=== PATIENT | male | born 1975 | race Caucasian/White ===

== ENCOUNTER 2017-01-25 19:48 | Inpatient (IN) | payer BC ==
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
--- NOTE | ~2017-01-25 | OP ---
Record Of Operation [facility] [address] [place]. [address] NAME: LAUREN SMITH : 73 STATUS : ADM IN PAT#: [id number] AGE: 41 ADM/REG DATE : 01/25/17 MR#: [id number] REPORT SERV DATE: 01/29/17 DICTATED BY: ALEXEI ALANIZ DATE: 01/29/17 REPORT STATUS : Draft TRANSCRIBED BY: MODL DATE: 01/29/17 DATE OF PROCEDURE: 01/29/2017 PREOPERATIVE DIAGNOSIS: Right small finger infection from dog bite. POSTOPERATIVE DIAGNOSIS: Right small finger infection from dog bite. OPERATION PERFORMED: 1. Right small finger irrigation and excisional debridement, the skin subcutaneous tissue, and open packing. 2. Right small finger irrigation, tenosynovectomy of the flexor sheath. SURGEON: Alexei Alaniz M.D. FURNITURE MOVER HELPER: Caroline Gamboa. ANESTHESIA: General. TOURNIQUET TIME: 19 minutes. INDICATION FOR OPERATION: Please refer to the consult note. OPERATIVE FINDINGS: There was purulent tenosynovitis in the area of the A1 jairo of the flexor sheath. Also the FDS tendon appeared to be redundant from approximately in the carpal canal. This did not make a lot of sense. It did not appear to be ruptured. Tenosynovectomy was performed at the level of the A1 jairo. There was fibrinous tissue of the soft tissue outside the flexor sheath in the area of the dog bite at the PIP flexion crease. This was debrided, was cultured. Irrigation of the flexor sheath was carried out with a 3.5-Austrian pediatric feeding tube. Ultimately open packing was carried out with Bactroban and NuGauze. DESCRIPTION OF PROCEDURE: The patient was taken to the operating room and placed on the operating table in supine position. Successful general anesthesia was given by the anesthesiologist. The tourniquet was applied. The right arm was secured with Steri-Drape. The right arm was then prepped with Betadine and draped in sterile routine fashion. The arm was elevated for five minutes. Tourniquet was inflated to 250 mmHg. Under 3.5 loupe magnification, the transverse dog bite incision was then incorporated into a Z-type of incision centered around the PIP flexion crease. The outer layer of superficial epidermis was blistered up. It was removed. The flaps were carefully elevated. There was purulent fibrinous tissue that was removed with a synovectomy rongeur. This was cultured as well. There appeared to be some rent in the flexor sheath from the initial penetration but the FDS and FDP tendons appeared to be intact. This was irrigated, then an incision was made at the level of the A1 jairo. Dissection was carried down through the skin and subcutaneous tissue. The sheath at this level was seen to be bulged up with purulent appearing tenosynovium. The A1 jairo was opened. The tenosynovium was then excised with the tenosynovectomy. It was noted that the FDS tendon appeared to be redundant proximally from Record Of Operation [place] [id number] [facility] [place]. [address] NAME: LAUREN SMITH : 73 STATUS : ADM IN PAT#: [id number] AGE: 41 ADM/REG DATE : 01/25/17 MR#: [id number] REPORT SERV DATE: 01/29/17 DICTATED BY: ALEXEI ALANIZ DATE: 01/29/17 REPORT STATUS : Draft TRANSCRIBED BY: AFRICA DATE: 01/29/17 the area of the carpal canal. The purulence did not appear to track further than the area of the A1 jairo. I had stripped all the tenosynovium from the tendons at this level. The A2 jairo was completely intact. I then irrigated the flexor sheath with the 3.5 mm Austrian pediatric feeding tube with about 400 mL of normal saline. The 0.5 inch NuGauze was then coated in Bactroban ointment and this was packed in both of the wounds. The tourniquet was let down prior to this packing. The patient was then placed in bulky compressive dressing and ulnar gutter splint and was taken to the recovery room in satisfactory condition. He tolerated the procedure well. DISPOSITION: He will plan to return to the operating room tomorrow for repeat I and D, possible closure, possible open packing. THIEN/AFRICA Alexei Alaniz M.D. / [id number] CC: Riley Ling, DO
--- NOTE | ~2017-01-25 | DS ---
Discharge Summary [facility] [address] [place]. [address] NAME: LAUREN SMITH : 73 STATUS : DIS IN PAT#: [id number] AGE: 41 ADM/REG DATE : 01/25/17 MR#: [id number] REPORT SERV DATE: 02/01/17 DICTATED BY: PRATIMA HERZOG DATE: 01/31/17 REPORT STATUS : Draft TRANSCRIBED BY: MODL DATE: 01/31/17 ADMISSION DATE: 01/25/2017 DISCHARGE DATE: 01/31/2017 HOSPITAL COURSE: This 41-year-old, male, has a [address] terrier dog who bit him on 01/23/2017, the right little finger is the worst bite with progressive swelling, pain and redness going up to his right arm, 103.1 temp on 01/25/2017, leukocytosis, A1c 15.9, placed on vancomycin and Zosyn. Had a flexor tendon sheath involvement showed Enterobacter resistant to Cipro along with Staph aureus MRSA, was actually reidentified as MSSA. The patient will receive IV Zosyn via PICC line through 02/09/2017, had two incision and drainages by Dr. Erik Alaniz, the last was yesterday on 01/30/2017. Right small middle finger I and D, irrigation closure over drain. Initial was a right small finger irrigation tenosynovectomy of the flexor sheath with closure the following day. The patient has had a variable labile/brittle diabetes requiring significant amount of insulin that became relatively hypoglycemic as a result of diabetic diet control and lifestyle modification. The patient did have acute blood loss anemia. His hemoglobin has been stable 10.2. DISCHARGE MEDS: 1. Cymbalta 20 mg p.o. daily. 2. Flomax 0.4 mg p.o. daily. 3. Levbid home dose. 4. Levemir or Lantus 20 units subcu q.h.s. 5. Medihoney apply to wound bed. 6. NovoLog 8 units subcu t.i.d. 7. Zosyn through 02/09/2017 via PICC line, then D/C PIC with Home Health. 8. Accu-Cheks. FOLLOWUP: The patient will follow up with Dr. Ramirez who used to follow, PCP in two weeks, and Dr. Alaniz with Orthopedics in two to six weeks. PROCEDURES: See above. CONSULTS: Infectious Disease, Orthopedic Hand. Follow up with Dr. Jewell as prescribed. DISCHARGE DIAGNOSES: Sepsis due to dog bite wound most notably in the right middle as well as right small finger status post two I and D's on IV Zosyn. Surgical culture is still pending with ID is okay with discharge. The patient has had clinical improvement on current therapy. All questions were answered. It took well over 30 minutes to do. DICTATED BY: Pratima Herzog DO WST/AFRICA Discharge Summary [place] [id number] [facility] [place] [address] NAME: LAUREN SMITH : 73 STATUS : DIS IN PAT#: [id number] AGE: 41 ADM/REG DATE : 01/25/17 MR#: [id number] REPORT SERV DATE: 02/01/17 DICTATED BY: PRATIMA HERZOG DATE: 01/31/17 REPORT STATUS : Draft TRANSCRIBED BY: MODKahlil DATE: 01/31/17 Pratima Herzog DO / [id number] CC: Pratima Herzog DO
--- NOTE | ~2017-01-25 | OP ---
Record Of Operation [facility] [address] [place]. [address] NAME: LAUREN SMITH : 73 STATUS : ADM IN PAT#: [id number] AGE: 41 ADM/REG DATE : 01/25/17 MR#: [id number] REPORT SERV DATE: 01/30/17 DICTATED BY: ALEXEI ALANIZ DATE: 01/30/17 REPORT STATUS : Draft TRANSCRIBED BY: MODL DATE: 01/30/17 DATE OF PROCEDURE: 01/30/2017 PREOPERATIVE DIAGNOSIS: Right small finger infection, status post initial irrigation and debridement, open packing. POSTOPERATIVE DIAGNOSIS: Right small finger infection, status post initial irrigation and debridement, open packing. OPERATION PERFORMED: Repeat irrigation and debridement of right small finger and irrigation of flexor sheath with closure over drain. SURGEON: Alexei Alaniz M.D. NURSING OFFICER: Ad Osorio. ANESTHESIA: General. TOURNIQUET TIME: 13 minutes. DRAINS: Vessel loop x1. INDICATION FOR OPERATION: Please refer to the previous op note and the consult note. OPERATIVE FINDINGS: There was no purulence present today. The skin over the proximal middle phalanx was friable, but viable and the flaps were able to be closed. Irrigation of the flexor sheath was carried out as well. A vessel loop drain was placed. DESCRIPTION OF PROCEDURE: The patient was taken to the operating room and placed on the operating table in supine position. Successful general anesthesia was given by the anesthesiologist. The packing was pulled out, the wound was inspected. Tourniquet applied to the right arm, secured with Steri-Drape. The right arm was then prepped with Betadine and draped in sterile routine fashion. The arm was elevated for five minutes. Tourniquet was inflated to 250 mmHg. Under 3.5 loupe magnification, I inspected the wounds, I then debrided the skin edges of the finger over the middle and proximal phalanx. Some of the subcutaneous tissue was debrided with a synovectomy rongeur. There was no purulence around the flexor sheath. I also inspected at the A1 jairo area, there was no purulence present there, some small amount of granulation tissue was removed with synovectomy rongeur. The wound was then copiously irrigated with about 500 mL of normal saline solution through bulb syringe, as well as irrigation with the Angiocath and syringe. The vessel loop drain was then placed in the flexor sheath all the way down proximal to the A1 jairo and brought out the distal wound. The flaps were then closed distally with 4-0 Prolene. The A1 jairo wound was closed with 3-0 Prolene. Tourniquet was let down. Hemostasis was good. The patient was placed in bulky compression dressing ulnar gutter splint and the vessel loop drain was brought out at the end and taped. Record Of Operation [address] [place]. [address] NAME: LAUREN SMITH : 73 STATUS : ADM IN PAT#: [id number] AGE: 41 ADM/REG DATE : 01/25/17 MR#: [id number] REPORT SERV DATE: 01/30/17 DICTATED BY: ALEXEI ALANIZ DATE: 01/30/17 REPORT STATUS : Draft TRANSCRIBED BY: AFRICA DATE: 01/30/17 DISPOSITION: We will plan to pull the drain tomorrow. He will be discharged on home antibiotics per Infectious Disease as cultures mature. He is to follow up in the office on 02/09/2017. THIEN/AFRICA Alexei Alaniz M.D. / [id number] CC: Riley Ling DO
--- NOTE | ~2017-01-25 | CN ---
Consultation Report [facility] [address] [place]. [address] NAME: LAUREN SMITH : 73 STATUS : ADM IN [facility]#: [id number] AGE: 41 ADM/REG DATE : 01/25/17 MR#: [id number] REPORT SERV DATE: 01/26/17 DICTATED BY: ALEXEI ALANIZ DATE: 01/26/17 REPORT STATUS : Draft TRANSCRIBED BY: AFRICA DATE: 01/26/17 CONSULTATION NOTE DATE OF CONSULTATION: CHIEF COMPLAINT: Dog bite, both hands. 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 The dog had full shots, and when the dog ran out of the leash, the dog bit him on multiple locations on both hands. Thursday, the right small finger started to swell, and the patient noticed streaking up the arm. The patient is an insulin-dependent diabetic. He came to the emergency room yesterday with blood sugars in the 400s, elevated temperature, and elevated white blood cell count. He was admitted last night to the hospitalist, begun on Zosyn, overnight, the right arm lymphangitis has already begin to improve. PAST MEDICAL HISTORY: ALLERGIES: NONE KNOWN. PAST SURGICAL HISTORY: Left great toe amputation. MEDICAL HISTORY: Insulin-dependent diabetes since 2008. SOCIAL AND FAMILY HISTORY: He is single. Lives in [place]. He does not smoke, he does not drink. FAMILY HISTORY: Unremarkable. REVIEW OF SYSTEMS: Negative except for history of diabetes. PHYSICAL EXAMINATION: Shows a pleasant, cooperative white male. He has multiple tattoos bilaterally. He has multiple scabs on both hands and the fingers. Full range of motion of the left hand. There was no pus around the scabs, left hand. Right hand small finger has redness and swelling with a 2 cm flexion lag. There is a scab right over the PIP flexion crease and multiple scabs dorsally. None have pus. There is no tenderness in the flexor sheath. There is cellulitis on the ulnar side of the hand with redness, although, it is fading from initial presentation per the patient. His lymphangitis has improved in the upper arm, but still somewhat tender. IMPRESSION: Dog bites to bilateral hands, with cellulitis, and lymphangitis of the right small finger. Consultation Report [facility] [address] [place]. [address] NAME: LAUREN SMITH : 73 STATUS : ADM IN PAT#: [id number] AGE: 41 ADM/REG DATE : 01/25/17 MR#: [id number] REPORT SERV DATE: 01/26/17 DICTATED BY: ALEXEI ALANIZ DATE: 01/26/17 REPORT STATUS : Draft TRANSCRIBED BY: AFRICA DATE: 01/26/17 PLAN: At this point, I do not see any evidence of flexor sheath or joint infection, or abscess that will require surgery. We will observe closely for any changes. Continue antibiotics per Infectious Disease. BS/AFRICA Alexei Alaniz M.D. / [id number] CC: Tawanda Torres M.D.
[2017-01-25 18:56] LABS: BASOPHILS 0.2 %; BASOPHILS ABSOLUTE 0.03 10/3/uL (0.0-0.16); EOSINOPHILS 0.7 %; EOSINOPHILS ABSOLUTE 0.09 10/3/uL (0.0-0.53); IMMATURE GRANULOCYTES 0.2 %; IMMATURE GRANULOCYTES ABSOLUTE 0.02 10/3/uL (0.0-0.11); LYMPHOCYTES 17.5 %; LYMPHOCYTES ABSOLUTE 2.17 10/3/uL (0.67-4.30); MEAN CORPUS HGB CONC 34.4 g/dL (32.0-36.0); MEAN CORPUSCULAR HEMOGLOB 27.1 pg (26.0-34.0); MEAN CORPUSCULAR VOLUME 78.9 fL (80-100); MEAN PLATELET VOLUME 9.7 fL (9.2-13.0); MONOCYTES 6.7 %; MONOCYTES ABSOLUTE 0.83 10/3/uL (0.21-1.20); NEUTROPHILS 74.7 %; NEUTROPHILS ABSOLUTE 9.25 10/3/uL (2.02-8.40); PLATELET COUNT 208 10/3/uL (150-400); RBC DISTRIBUTION WIDTH 12.4 % (12.0-16.0)
[2017-01-25 18:57] LABS: ER CBC TAT 0 Hrs 07 Mins; HEMOGLOBIN 11.7 g/dL (13.6-17.8); MANUAL DIFF NO %; RED CELL COUNT 4.31 10/6/uL (4.7-6.1); WHITE BLOOD CELLS 12.4 10/3/uL (4.5-10.5)
[2017-01-25 19:09] LABS: ALKALINE PHOSPHATASE 117 U/L (45-117); CALCIUM, SERUM 8.7 MG/DL (8.5-10.4); CHLORIDE, SERUM 99 MMOL/L (96-112); CO2 (CARBON DIOXIDE) 29 MMOL/L (24-34); CREATININE 1.07 MG/DL (0.70-1.30); GFR AFRICAN AMERICAN 99 ML/MIN (>=60); GFR NON AFRICAN AMERICAN 85 ML/MIN (>=60); GLOBULIN 3.3 G/DL (2.5-4.1); POTASSIUM, SERUM 4.6 MMOL/L (3.5-5.3); SGOT(AST) 16 U/L (5-40); SGPT(ALT) 28 U/L (5-65); SODIUM, SERUM 133 MMOL/L (135-148); TOTAL BILIRUBIN 1.6 MG/DL (0-1.2); TOTAL PROTEIN 6.7 G/DL (6.0-8.5)
[2017-01-25 19:10] LABS: ALBUMIN 3.4 G/DL (3.5-5.0); BUN (BLOOD UREA NITROGEN) 14 MG/DL (6-23); GLUCOSE, SERUM 424 MG/DL (60-99)
[~2017-01-25 19:48] MED LIST: LANTUS SC; LEVSINTAB PO; NEUR800 PO; NORCO1 TAB PO; NOVOLOG SC
[2017-01-25] MEDS ORDERED: NEUR800 PO (19:56)
[2017-01-25] MEDS ORDERED: LANTUSCART SC (19:57)
[2017-01-25] MEDS ORDERED: NOVOPEN SC (19:57)
[2017-01-25] MEDS ORDERED: LEVBID PO (19:58)
[2017-01-25] MEDS ORDERED: NORCO1 TAB PO (19:58)
[2017-01-25] MEDS ORDERED: IMOD PO (19:59)
[2017-01-25] MEDS ORDERED: CYMBALTA20 PO (20:00)
[2017-01-25] MEDS ORDERED: LIDODERM TOP (20:01)
[2017-01-25] MEDS ORDERED: BC HEADACHE PO (20:02)
[2017-01-26 05:24] LABS: BASOPHILS 0.3 %; BASOPHILS ABSOLUTE 0.04 10/3/uL (0.0-0.16); EOSINOPHILS 1.5 %; EOSINOPHILS ABSOLUTE 0.19 10/3/uL (0.0-0.53); HEMATOCRIT 32.2 % (40.0-51.0); HEMOGLOBIN 10.8 g/dL (13.6-17.8); IMMATURE GRANULOCYTES 0.2 %; IMMATURE GRANULOCYTES ABSOLUTE 0.03 10/3/uL (0.0-0.11); LYMPHOCYTES ABSOLUTE 2.22 10/3/uL (0.67-4.30); MEAN CORPUS HGB CONC 33.5 g/dL (32.0-36.0); MEAN CORPUSCULAR HEMOGLOB 26.7 pg (26.0-34.0); MEAN CORPUSCULAR VOLUME 79.7 fL (80-100); MEAN PLATELET VOLUME 9.8 fL (9.2-13.0); MONOCYTES 9.1 %; MONOCYTES ABSOLUTE 1.12 10/3/uL (0.21-1.20); NEUTROPHILS 70.9 %; NEUTROPHILS ABSOLUTE 8.71 10/3/uL (2.02-8.40); PLATELET COUNT 199 10/3/uL (150-400); RBC DISTRIBUTION WIDTH 12.6 % (12.0-16.0); RED CELL COUNT 4.04 10/6/uL (4.7-6.1); WHITE BLOOD CELLS 12.3 10/3/uL (4.5-10.5)
[2017-01-26 05:25] LABS: MANUAL DIFF NO %
[2017-01-26 05:34] LABS: INTERNATIONAL NORMAL RATI 1.2 UNITS (-); PARTIAL THROMBO TIME 46.7 SEC (22.5-37.2); PROTIME (NOT ORD) 14.7 SEC (12.0-14.5)
[2017-01-26 05:58] LABS: A/G RATIO 0.9 (0.7-1.9); ALBUMIN 2.8 G/DL (3.5-5.0); BUN (BLOOD UREA NITROGEN) 15 MG/DL (6-23); CALCIUM, SERUM 8.6 MG/DL (8.5-10.4); CHLORIDE, SERUM 103 MMOL/L (96-112); CO2 (CARBON DIOXIDE) 29 MMOL/L (24-34); CREATININE 0.86 MG/DL (0.70-1.30); GFR AFRICAN AMERICAN 124 ML/MIN (>=60); GFR NON AFRICAN AMERICAN 107 ML/MIN (>=60); GLOBULIN 3.1 G/DL (2.5-4.1); SGOT(AST) 36 U/L (5-40); SGPT(ALT) 29 U/L (5-65); SODIUM, SERUM 138 MMOL/L (135-148); TOTAL PROTEIN 5.9 G/DL (6.0-8.5)
[2017-01-26 06:01] LABS: ALKALINE PHOSPHATASE 101 U/L (45-117); GLUCOSE, SERUM 105 MG/DL (60-99); POTASSIUM, SERUM 3.6 MMOL/L (3.5-5.3); TOTAL BILIRUBIN 1.1 MG/DL (0-1.2)
[2017-01-27 01:52] LABS: MICROALBUMIN, RANDOM URINE 16.1 MG/DL
[2017-01-27 04:57] LABS: BASOPHILS 0.2 %; BASOPHILS ABSOLUTE 0.02 10/3/uL (0.0-0.16); EOSINOPHILS 2.6 %; EOSINOPHILS ABSOLUTE 0.28 10/3/uL (0.0-0.53); HEMOGLOBIN 10.9 g/dL (13.6-17.8); IMMATURE GRANULOCYTES 0.2 %; IMMATURE GRANULOCYTES ABSOLUTE 0.02 10/3/uL (0.0-0.11); LYMPHOCYTES 17.6 %; LYMPHOCYTES ABSOLUTE 1.91 10/3/uL (0.67-4.30); MEAN CORPUSCULAR HEMOGLOB 26.5 pg (26.0-34.0); MEAN CORPUSCULAR VOLUME 80.3 fL (80-100); MEAN PLATELET VOLUME 9.7 fL (9.2-13.0); MONOCYTES 6.5 %; MONOCYTES ABSOLUTE 0.71 10/3/uL (0.21-1.20); NEUTROPHILS 72.9 %; NEUTROPHILS ABSOLUTE 7.93 10/3/uL (2.02-8.40); PLATELET COUNT 205 10/3/uL (150-400); RBC DISTRIBUTION WIDTH 12.5 % (12.0-16.0); RED CELL COUNT 4.11 10/6/uL (4.7-6.1); WHITE BLOOD CELLS 10.9 10/3/uL (4.5-10.5)
[2017-01-27 04:58] LABS: MANUAL DIFF NO %
[2017-01-27 05:10] LABS: A/G RATIO 0.8 (0.7-1.9); ALBUMIN 2.4 G/DL (3.5-5.0); ALKALINE PHOSPHATASE 95 U/L (45-117); BUN (BLOOD UREA NITROGEN) 13 MG/DL (6-23); CALCIUM, SERUM 7.9 MG/DL (8.5-10.4); CHLORIDE, SERUM 104 MMOL/L (96-112); CHOL/HDL RATIO(NOT ORDER) 2.2 (0-5); CHOLESTEROL 108 MG/DL (< 200); CO2 (CARBON DIOXIDE) 30 MMOL/L (24-34); CREATININE 0.67 MG/DL (0.70-1.30); GFR AFRICAN AMERICAN 137 ML/MIN (>=60); GFR NON AFRICAN AMERICAN 119 ML/MIN (>=60); GLOBULIN 3.1 G/DL (2.5-4.1); HDL CHOLESTEROL 50 MG/DL (> 39); LDL CHOLESTEROL 37 MG/DL (< 130); NON-HDL CHOLESTEROL 58 MG/DL (< 160); POTASSIUM, SERUM 4.1 MMOL/L (3.5-5.3); SGOT(AST) 28 U/L (5-40); SGPT(ALT) 31 U/L (5-65); SODIUM, SERUM 138 MMOL/L (135-148); TOTAL BILIRUBIN 0.9 MG/DL (0-1.2); TOTAL PROTEIN 5.5 G/DL (6.0-8.5); TRIGLYCERIDE 105 MG/DL (< 150)
[2017-01-27 05:12] LABS: GLUCOSE, SERUM 156 MG/DL (60-99)
[2017-01-27 05:48] LABS: PROCALCITONIN 0.12 ng/mL (<0.5)
[2017-01-29 06:43] LABS: BASOPHILS 0.4 %; BASOPHILS ABSOLUTE 0.03 10/3/uL (0.0-0.16); EOSINOPHILS 3.5 %; HEMATOCRIT 31.3 % (40.0-51.0); HEMOGLOBIN 10.3 g/dL (13.6-17.8); IMMATURE GRANULOCYTES 0.2 %; IMMATURE GRANULOCYTES ABSOLUTE 0.02 10/3/uL (0.0-0.11); LYMPHOCYTES 25.5 %; LYMPHOCYTES ABSOLUTE 2.17 10/3/uL (0.67-4.30); MEAN CORPUS HGB CONC 32.9 g/dL (32.0-36.0); MEAN CORPUSCULAR HEMOGLOB 26.4 pg (26.0-34.0); MEAN CORPUSCULAR VOLUME 80.3 fL (80-100); MONOCYTES 10.8 %; MONOCYTES ABSOLUTE 0.92 10/3/uL (0.21-1.20); NEUTROPHILS 59.6 %; NEUTROPHILS ABSOLUTE 5.08 10/3/uL (2.02-8.40); PLATELET COUNT 275 10/3/uL (150-400); RBC DISTRIBUTION WIDTH 12.5 % (12.0-16.0); WHITE BLOOD CELLS 8.5 10/3/uL (4.5-10.5)
[2017-01-29 06:44] LABS: MANUAL DIFF NO %
[2017-01-29 06:51] LABS: CHLORIDE, SERUM 103 MMOL/L (96-112); CO2 (CARBON DIOXIDE) 29 MMOL/L (24-34); CREATININE 0.85 MG/DL (0.70-1.30); GFR AFRICAN AMERICAN 125 ML/MIN (>=60); GFR NON AFRICAN AMERICAN 107 ML/MIN (>=60); PHOSPHORUS, SERUM 2.4 MG/DL (2.5-4.5); POTASSIUM, SERUM 4.4 MMOL/L (3.5-5.3); SODIUM, SERUM 138 MMOL/L (135-148)
[2017-01-29 06:53] LABS: BUN (BLOOD UREA NITROGEN) 6 MG/DL (6-23); CALCIUM, SERUM 8.9 MG/DL (8.5-10.4); GLUCOSE, SERUM 297 MG/DL (60-99)
[2017-01-30 05:01] LABS: BASOPHILS 0.6 %; BASOPHILS ABSOLUTE 0.04 10/3/uL (0.0-0.16); EOSINOPHILS 5.4 %; EOSINOPHILS ABSOLUTE 0.37 10/3/uL (0.0-0.53); HEMATOCRIT 32.6 % (40.0-51.0); HEMOGLOBIN 10.6 g/dL (13.6-17.8); IMMATURE GRANULOCYTES 0.3 %; IMMATURE GRANULOCYTES ABSOLUTE 0.02 10/3/uL (0.0-0.11); LYMPHOCYTES 32.4 %; LYMPHOCYTES ABSOLUTE 2.21 10/3/uL (0.67-4.30); MANUAL DIFF NO %; MEAN CORPUS HGB CONC 32.5 g/dL (32.0-36.0); MEAN CORPUSCULAR HEMOGLOB 26.4 pg (26.0-34.0); MEAN CORPUSCULAR VOLUME 81.3 fL (80-100); MEAN PLATELET VOLUME 8.3 fL (9.2-13.0); MONOCYTES 6.6 %; MONOCYTES ABSOLUTE 0.45 10/3/uL (0.21-1.20); NEUTROPHILS 54.7 %; NEUTROPHILS ABSOLUTE 3.74 10/3/uL (2.02-8.40); PLATELET COUNT 279 10/3/uL (150-400); RBC DISTRIBUTION WIDTH 12.6 % (12.0-16.0); RED CELL COUNT 4.01 10/6/uL (4.7-6.1); WHITE BLOOD CELLS 6.8 10/3/uL (4.5-10.5)
[2017-01-30 05:11] LABS: PHOSPHORUS, SERUM 3.3 MG/DL (2.5-4.5)
[2017-01-31 06:02] LABS: BASOPHILS 0.7 %; BASOPHILS ABSOLUTE 0.05 10/3/uL (0.0-0.16); EOSINOPHILS 4.8 %; EOSINOPHILS ABSOLUTE 0.33 10/3/uL (0.0-0.53); HEMATOCRIT 31.6 % (40.0-51.0); HEMOGLOBIN 10.2 g/dL (13.6-17.8); IMMATURE GRANULOCYTES 0.3 %; IMMATURE GRANULOCYTES ABSOLUTE 0.02 10/3/uL (0.0-0.11); LYMPHOCYTES 26.7 %; LYMPHOCYTES ABSOLUTE 1.82 10/3/uL (0.67-4.30); MEAN CORPUS HGB CONC 32.3 g/dL (32.0-36.0); MEAN CORPUSCULAR HEMOGLOB 26.3 pg (26.0-34.0); MEAN CORPUSCULAR VOLUME 81.4 fL (80-100); MEAN PLATELET VOLUME 8.2 fL (9.2-13.0); MONOCYTES 12.5 %; MONOCYTES ABSOLUTE 0.85 10/3/uL (0.21-1.20); NEUTROPHILS ABSOLUTE 3.75 10/3/uL (2.02-8.40); PLATELET COUNT 293 10/3/uL (150-400); RBC DISTRIBUTION WIDTH 12.9 % (12.0-16.0); RED CELL COUNT 3.88 10/6/uL (4.7-6.1); WHITE BLOOD CELLS 6.8 10/3/uL (4.5-10.5)
[2017-01-31 06:03] LABS: MANUAL DIFF NO %
[2017-01-31 06:12] LABS: PHOSPHORUS, SERUM 3.4 MG/DL (2.5-4.5)
[2017-01-31] MEDS ORDERED: NORCO1 TA2 PO (11:03)
[2017-01-31] MEDS ORDERED: LANTUS SC (11:04)
[2017-01-31] MEDS ORDERED: ZOSYN375 IV (11:04)
[2017-01-31] MEDS ORDERED: FLOMAX4 PO (11:05)
[2017-01-31] MEDS ORDERED: NOVOLOG SC (11:05)
== END 2017-01-31 17:21 | disposition home or self-care (01) | DRG 854 ==
LOC: ER 19:48 → 4SO 20:38
PROVIDERS: Emergency Medicine; Internal Medicine; Orthopaedic Surgery Hand Surgery
PROC: 0LB70ZZ Excision of Right Hand Tendon, Open Approach (ICD-10-PCS; principal; 2017-01-29 15:15)
PROC: 0JBJ0ZZ Excision of Right Hand Subcutaneous Tissue and Fascia, Open Approach (ICD-10-PCS; 2017-01-30)
DX: A41.01 Sepsis due to Methicillin susceptible Staphylococcus aureus (principal); D62 Acute posthemorrhagic anemia; E11.649 Type 2 diabetes mellitus with hypoglycemia without coma; E11.65 Type 2 diabetes mellitus with hyperglycemia; L03.113 Cellulitis of right upper limb; T24.031A Burn of unspecified degree of right lower leg, initial encounter; L03.114 Cellulitis of left upper limb; S66.126A Laceration of flexor muscle, fascia and tendon of right little finger at wrist and hand level, initial encounter; S61.256A Open bite of right little finger without damage to nail, initial encounter; A41.89 Other specified sepsis; S61.452A Open bite of left hand, initial encounter; W54.0XXA Bitten by dog, initial encounter; Y93.F9 Activity, other caregiving; Z86.010 Personal history of colon polyps; Z79.891 Long term (current) use of opiate analgesic; Z79.4 Long term (current) use of insulin; Z89.412 Acquired absence of left great toe; V29.9XXA Motorcycle rider (driver) (passenger) injured in unspecified traffic accident, initial encounter; K58.9 Irritable bowel syndrome, unspecified; B95.61 Methicillin susceptible Staphylococcus aureus infection as the cause of diseases classified elsewhere
CPT/HCPCS: 36569; 73130-RT; 73201-RT; 80048; 80053; 80061; 80202; 82043; 82272; 82962; 83036; 83735; 84100; 84145; 84443; 85025; 85610; 85730; 86317; 87040; 87070; 87075; 87077; 87186; 87205; 87493; 87493-59; 90715; 96374; 99284; A9270-GY; C1751; J2250; J2270; J2370; J2405; J2543; J3010; J3370; Q9967